=== PATIENT | female | born 1965 ===

== ENCOUNTER 2020-05-07 08:42 | Outpatient (CLI) | payer OTHER ==
[2020-05-07 09:34] LABS: Blood Urea Nitrogen 11 mg/dL (7-17)
--- NOTE | 2020-05-07 11:59 | Cat Scan Report ---
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 TECHNIQUE: All CT scans at this location are performed using the following dose modulation technique: Automated exposure control. Helical slices were obtained through the abdomen, pelvis, and lower extremities fol lowing the administration of 100 cc of Omnipaque 350 axial, coronal, and sagittal MIPS reformatted im ages were obtained. COMPARISON: None available. FINDINGS: Aorta: There is atherosclerotic plaque in the abdominal aorta without hemodynamically significant valentina nosis. The celiac artery, superior mesenteric artery, and renal arteries are patent. The single ident ifiable right renal artery is small and there is atrophy of the right. 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 There is reconstitution of the distal most aspect of the left common femoral a rtery from collaterals. The left superficial femoral artery and profunda femoral artery are patent wi thout hemodynamically significant stenosis. The left popliteal artery and 3 runoff vessels are patent . There is moderate plaque in the right common iliac artery with an approximate 40% diameter reduction stenosis in its distal aspect. There is occlusion of the right external iliac artery with reconstitut ion of the right common femoral artery which is small. The right superficial femoral artery, poplitea l artery and proximal runoff vessels are patent. The posterior tibial artery occludes in the mid calf two-vessel runoff to the ankle as the anterior tibial and peroneal arteries. ABDOMEN: There is breathing motion artifact lower chest and upper abdomen. The liver, spleen, pancrea s, adrenal glands, and left kidney show no acute abnormality. There is right renal atrophy. No adenop athy is seen. There is no obstruction, inflammation, or free air. There is a moderate to large amount stool noted in the colon. Pelvis: Postoperative changes are noted in the pelvis. There are surgical clips noted bilaterally no dissection. There is some soft tissue thickening along the right posterior pelvic sidewall and to a l ashly extent the left posterior pelvic sidewall. There is an enlarged irregular noted in the right gr oin which measures approximately 2.2 cm. On review of bone windows, there is osteopenia. There is significant osteopenia in the sacrum and pos terior aspect of the iliac bones possibly representing post radiation change. This also involves the acetabulum bilaterally. IMPRESSION: 1. 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 2. There is occlusion of the right external iliac artery with reconstitution of the common femoral ar chantell. 3. There is a mildly enlarged irregular appearing node in the left groin. His could represent reactiv e node. Possibility of neoplasm is considered. There are additional small nodes in both groins. 4. Postoperative and radiation change noted in the pelvis. Signer Name: Sandip Hancock MD Signed: 05/07/2020 11:55 AM Workstation Name: [id number]
== END 2020-05-07 08:43 | disposition home or self-care (01) ==
LOC: CT 08:42
PROVIDERS: ATTEND Radiology Diagnostic Radiology
DX: I70.8 Atherosclerosis of other arteries (principal); I70.235 Atherosclerosis of native arteries of right leg with ulceration of other part of foot
CPT/HCPCS: 36415; 75635; 82565; 84520; Q9967